=== PATIENT | male | born 1985 | race American Indian/Alaskan Native ===

== ENCOUNTER 2016-12-31 09:53 | Emergency (ER) | payer OTHER ==
[2016-12-31 10:44] LABS: Basophils % (Auto) 0.4 % (0.0-1.8); Eosinophils % (Auto) 0.2 % (0.0-4.3); Hematocrit 46.9 % (35.5-45.6); Hemoglobin 15.6 gm/dl (11.8-15.2); Mean Corpuscular HGB Conc 33 % (32-34); Mean Corpuscular Hemoglobin 30 pg (28-32); Mean Corpuscular Volume 90 fl (84-94); Platelet Count 171 K/mm3 (140-440); Red Blood Count 5.22 M/mm3 (3.65-5.03); Red Cell Distribution Width 13.1 % (13.2-15.2); White Blood Count 10.8 K/mm3 (4.5-11.0)
[2016-12-31 10:59] LABS: Anion Gap 16 mmol/L; BUN/Creatinine Ratio 10; Blood Urea Nitrogen 10 mg/dL (9-20); Calcium 8.9 mg/dL (8.4-10.2); Carbon Dioxide 29 mmol/L (22-30); Chloride 98.9 mmol/L (98-107); Glucose 81 mg/dL (75-100); Potassium 3.9 mmol/L (3.6-5.0); Sodium 140 mmol/L (137-145)
[2016-12-31] MEDS ORDERED: DUONEB *Not for PRN Use IH ONE (11:22)
[2016-12-31] MEDS ORDERED: TYLENOL PO ONE (11:22)
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
[2016-12-31 11:46] LABS: Bilirubin,Urine NEG (Negative); Blood,Urine NEG (Negative); Ketones,Urine NEG (Negative); Leukocyte Esterase,Urine NEG (Negative); Mucus,Urine FEW /HPF; Nitrite,Urine NEG (Negative); Protein,Urine <15 mg/dL mg/dL (Negative); RBC,Urine < 1.0 /HPF (0.0-6.0)
[2016-12-31] MEDS ORDERED: NACL ONE (11:54)
--- NOTE | 2016-12-31 12:43 | XRay Report ---
CHEST TWO VIEWS: 12/31/16 09:53:00 CLINICAL: Shortness of breath and chest pain. COMPARISON: None FINDINGS: Normal heart and pulmonary vasculature. Mild bibasal opacities at the costophrenic angles. Greater opacity on the right side. The upper lung barbosa are clear.The bones and soft tissues are unremarkable. IMPRESSION: Possible small right pleural effusion. Mild bibasal subsegmental atelectasis.
[2016-12-31] MEDS ORDERED: HEPARIN 10,000 UNITS/10 ML IV ONE (13:03)
--- NOTE | 2016-12-31 13:05 | Cat Scan Report ---
CT CHEST WITH CONTRAST: 12/31/16 11:50:00 CLINICAL: Shortness of breath and elevated d-dimer. TECHNIQUE: PE protocol with volumetric acquisition and 1.25 mm scan reconstructions after the uneventful intravenous injection of 100 cc Omnipaque 350. Consent was obtained prior to the administration of contrast. FINDINGS: Satisfactory opacification of the pulmonary arteries and moderate burden of pulmonary artery thrombus identified in bilateral upper lobe and lower lobe lobar and segmental arteries. Small left pleural effusion. Bibasal patchy lung opacities, greater and more diffuse in the left lower lobe. The upper lungs are clear. Normal heart and aorta. Normal thyroid, trachea and esophagus. The upper abdomen is unremarkable. The bones and soft tissues are normal. IMPRESSION: Positive study for bilateral upper and lower lobe pulmonary embolus with a moderately large burden of thrombus in lobar and segmental arteries. Verbal report was given to in the emergency department 13:00 on 12/31/16. ANISH ZAPATA
[2016-12-31] MEDS ORDERED: ELIQUIS PO SCH (13:06)
--- NOTE | 2016-12-31 13:08 | History and Physical Report ---
History of Present Illness Chief complaint: My back hurts, and its worse when i breathe deep. History of present illness: 31 YO Male with NO PMH presents to ED for evaluation. Pt states that he has experienced pain in his back for the past 4 days, with worsening symptoms over the past 1 day. Pt states that pain is 4/10, worse with deep breathing, nonradiating. Pt denies fever, chills, palpitations, CP, Hemoptysis, BRBPR, Productive cough, syncope, leg swelling, calf pain, prolonged travel/immobility , individual/family history of DVT/PE, skin rash, unintentional weight loss, or night sweats. Pt seen and evaluated in ED and found to have elevated D-dimer, CTA chest reveals PE. Pt not in respiratory distress. EKG does not reveal RV strain pattern. Pt started on therapeutic anticoagulation and discharged home and instructed to f/u pcp 1wk, hematology prn. Past History Past Medical History: No medical history, other (reviewed) Past Surgical History: No surgical history, Other (reviewed) Social history: single. denies: smoking, alcohol abuse, prescription drug abuse Family history: no significant family history, other (reviewed) Medications and Allergies Allergies Allergy/AdvReac Type Severity Reaction Status Date / Time No Known Allergies Allergy Unverified 12/31/16 10:13 Home Medications Medication Instructions Recorded Confirmed Last Taken Type Apixaban [Eliquis] 5 mg PO BID #74 tablet 12/31/16 Unknown Rx Active Meds: Active Medications Apixaban (Eliquis) 10 mg PO Q12HR VANESA PRN Reason: Protocol Review of Systems Constitutional: no weight loss, no weight gain, no fever, no chills Ears, nose, mouth and throat: no ear pain, no ear discharge, no tinnitis, no decreased hearing, no nose pain, no nasal congestion Cardiovascular: no chest pain, no orthopnea, no palpitations, no rapid/ irregular heart beat, no edema, no syncope Respiratory: pleurisy, no cough, no cough with sputum, no excessive sputum, no hemoptysis, no shortness of breath, no dyspnea on exertion Gastrointestinal: no abdominal pain, no nausea, no vomiting, no diarrhea, no change in bowel habits, no hematemesis Genitourinary Male: no dysuria, no hematuria, no flank pain, no discharge, no urinary frequency, no urinary hesitancy, no nocturia, no incontinence Rectal: no pain, no incontinence, no bleeding Musculoskeletal: no neck stiffness, no neck pain, no shooting arm pain, no arm numbness/tingling, no low back pain, no shooting leg pain Integumentary: no rash, no pruritis, no redness, no sores, no wounds, no jaundice Neurological: no transient paralysis, no paralysis, no weakness, no parathesias , no numbness, no tingling Psychiatric: no anxiety, no memory loss, no change in sleep habits, no sleep disturbances, no insomnia, no hypersomnia, no change in appetite, no change in libido Endocrine: no cold intolerance, no heat intolerance, no polyphagia, no excessive thirst, no polydipsia, no polyuria, no nocturia Hematologic/Lymphatic: no easy bruising, no easy bleeding Allergic/Immunologic: no urticaria, no allergic rhinitis, no wheezing Exam - Constitutional Vitals: Temp Pulse Resp BP Pulse Ox 98.2 F 71 18 143/91 100 12/31/16 12:24 12/31/16 12:24 12/31/16 12:24 12/31/16 12:24 12/31/16 12:24 General appearance: Present: no acute distress, well-nourished - EENT Eyes: Present: PERRL ENT: hearing intact, clear oral mucosa - Neck Neck: Present: supple, normal ROM - Respiratory Respiratory effort: normal Respiratory: bilateral: CTA - Cardiovascular Heart Sounds: Present: S1 & S2. Absent: rub, click - Extremities Extremities: pulses symmetrical, No edema Peripheral Pulses: within normal limits - Abdominal General gastrointestinal: Present: soft, non-tender, non-distended, normal bowel sounds Male genitourinary: Present: normal - Integumentary Integumentary: Present: clear, warm, dry - Musculoskeletal Musculoskeletal: gait normal, strength equal bilaterally - Psychiatric Psychiatric: appropriate mood/affect, intact judgment & insight - Neurologic Neurologic: CNII-XII intact, moves all extremities Results - Labs CBC & Chem 7: 12/31/16 10:24 12/31/16 10:24 Labs: Abnormal lab results 12/31/16 12/31/16 Range/Units 10:24 11:04 RBC 5.22 H (3.65-5.03) M/mm3 Hgb 15.6 H (11.8-15.2) gm/dl Hct 46.9 H (35.5-45.6) % RDW 13.1 L (13.2-15.2) % [place] % (Auto) 9.3 H (0.0-7.3) % [place] # 1.0 H (0.0-0.8) K/mm3 D-Dimer 3086.09 H (0-234) ng/mlDDU Assessment and Plan - Patient Problems (1) Pulmonary emboli Current Visit: Yes Status: Acute Qualifiers: Pulmonary embolism type: P Chronicity: C Acute cor pulmonale presence: A Plan to address problem: Therapeutic Anticoagulation with eliquis, f/u pcp 1wk, hematology f/u prn.
[2016-12-31 13:22] LABS: INR 0.92 (0.87-1.13); Partial Thromboplastin Time 31.4 Sec. (24.2-36.6)
[2016-12-31] MEDS ORDERED: HEPARIN/ 0.45% NACL-25,000 UNIT/500 ML 25,000 UNIT/500 ML BAG IV SCH (14:00)
[2016-12-31 14:52] VITALS: BP 142/88
== END 2016-12-31 17:41 | disposition admitted as inpatient to this hospital (09) ==
LOC: ED 09:53
DX: I26.99 Other pulmonary embolism without acute cor pulmonale (principal); M54.89 Other dorsalgia
CPT/HCPCS: 36415; 71020; 71275; 80048; 81001; 84484; 85025; 85379; 85610; 85730; 93005; 93010; 99283; Q9967